=== PATIENT | female | born 1970 | race American Indian/Alaskan Native ===

== ENCOUNTER → 2022-02-23 | Day surgery (SDC) | payer MEDICARE, MEDICAID ==
[~2022-02-23] MED LIST: Midazolam 1 MG/ML 2 ML SDV IV ONE; Propofol 200 MG/20 ML SDV IV ONE
== END ==
LOC: KA.SDS 06:00
PROVIDERS: ATTEND Family Medicine
DX: D12.0 Benign neoplasm of cecum (principal); K21.9 Gastro-esophageal reflux disease without esophagitis; E66.9 Obesity, unspecified; F33.0 Major depressive disorder, recurrent, mild; Z79.899 Other long term (current) drug therapy; Z68.43 Body mass index [BMI] 50.0-59.9, adult
CPT/HCPCS: 00812; 81025; J2250; J2704